=== PATIENT | female | born 1975 | race Caucasian/White ===

== ENCOUNTER 2024-04-04 18:15 | Emergency (ER) | payer BC, SELFPAY ==
[2024-04-04 18:36] VITALS: BP 181/125
--- NOTE | 2024-04-04 18:36 | ED.GENMED ---
ED Provider Triage
<Ross Serra Jr., PA-C - Last Filed: 04/04/24 18:40>
-
Patient seen by provider in Triage?: Seen in Triage
Attestation: A medical screening examination has been initiated by a qualified medical provider. Based on the assessment performed at this time, it has been determined that an emergent medical condition may exist and the patient has been informed
that further medical evaluation and possible additional diagnostic testing may be needed.
HPI: 48 F coming in for persisting nausea vomiting and headache. Had elevated blood pressure went to [facility] 2 days ago and that of having a CT and MRI of her head without acute abnormalities was told to follow-up closely with
neurology was started on amlodipine. Blood pressure was improving at time of discharge but has since increased back to 165/110. Difficulty tolerating anything by mouth and still diffuse headache. Considering ongoing symptoms plan for labs as well
as medication for potential migraine syndrome.
GENERAL: Alert , in no apparent distress
EYE: No visual abnormalities.
NECK: Trachea midline
ENT: No visible abnormalities.
LUNGS: No acute respiratory distress
NEUROLOGICAL: Alert and oriented
SKIN: Skin intact. No visible changes.
MUSCULOSKELETAL: Moving extremities normally
PSYCH: Normal and appropriate interaction.
This is a medical evaluation conducted in person to initiate diagnostic evaluation and provide initial therapeutics. Please see further documentation by the treating clinician.
History of Present Illness
<Ross Serra Jr., PA-C - Last Filed: 04/04/24 18:40>
General
Chief Complaint: Blood Pressure Problem
Time Seen by Provider: 04/04/24 20:55
<INDIA Ferrari - Last Filed: 04/04/24 23:30>
General
Source: patient and spouse
Exam Limitations: none
History of Present Illness
History of Present Illness:
This is a 48 year old female that comes in with c/o hypertension and headache. States that on Wednesday she had a headache so she took her BP and it was 175/100 and something. State that on Wednesday it remained high so she went to [facility]. State that
she was kept there till last night. State that they did an MRI and CT of here head and they were normal. States that she was told to see a Neurologist. States that they place on Amlodipine 10mg which she takes in the morning. States that she has had
some chills and vomited. States that her headache is across her forehead and back to the back of her head. Denies any fever, chest pain, SOB, abd pain, nausea, diarrhea, dizziness, urinary burning.
Past History
<INDIA Ferrari - Last Filed: 04/04/24 23:30>
Past History
ED Past Medical History: HTN, Hypothyroidism and Other (Colitis, )
ED Past Surgical History: Other (Breast surgery)
Social History
Tobacco: Non-smoker
Alcohol: None
Personal:
Living: with family
Review of Systems
<INDIA Ferrari - Last Filed: 04/04/24 23:30>
Review of Systems
All Other Systems: ROS reviewed and negative except as documented in HPI and ROS
Constitutional: Reports chills; Denies fever
EENT: Reports no symptoms
Respiratory: Reports no symptoms; Denies cough or trouble breathing
Cardiac: Reports no symptoms; Denies chest pain
ABD/GI: Reports nausea and vomiting; Denies abdominal pain or diarrhea
: Reports no symptoms; Denies dysuria, frequency or urgency
Musculoskeletal: Reports no symptoms
Skin: Reports no symptoms
Neurological: Reports headache; Denies dizzy
Psychiatric: Reports no symptoms
Phy Exam
<INDIA Ferrari - Last Filed: 04/04/24 23:30>
General Physical Exam
General Presentation: no apparent distress
General age: appears stated age
General Skin: warm and dry
General Habitus: normal
General Mental: alert
General Hydration: appears well hydrated
ENT Exam
ENT Exam: TM's normal, pharynx normal and neck supple
Eye Exam
Eye Exam: EOMI
Cardiovascular Exam
Cardiovascular Exam: regular rate/rhythm, no edema, no murmur and normal peripheral pulses
Pulmonary Exam
Pulmonary Exam: lungs clear, no respiratory distress, no rales, chest non tender, no crackles, no rhonchi, no wheezing and no cough
Gastrointestinal Exam
Gastrointestinal Exam: normal bowel sounds, non tender, soft, no organomegaly, no pulsatile mass and non distended
Musculoskeletal Exam
Musculoskeletal Exam: full ROM and no edema
Skin Exam
Skin Exam: normal color, warm/dry, no rash and no petechia
Psychiatric Exam
Psychiatric Exam: normal mood/affect
Course
<Ross Serra Jr., PA-C - Last Filed: 04/04/24 18:40>
Orders/Labs/Results
Orders:
Orders
04/04/24 18:38
Electrocardiogram (*1) Stat
Reason for Study: Abdominal Pain
EKG- Treatment ONCE
Urinalysis Reflex To Culture Urgent
0.9% Sodium Chloride 1000 ml [Nss] 1,000 ml IV BOLUS
Diphenhydramine [Benadryl] 25 mg IV NOW STA
Metoclopramide [Reglan] 10 mg IV NOW STA
04/04/24 19:10
Complete Blood Count/With Diff Urgent
Comprehensive Metabolic Panel Urgent
Lipase Urgent
04/04/24 21:21
Acetaminophen [Tylenol] 1,000 mg PO NOW STA
Dexamethasone Sod Phosphate [Decadron] 20 mg IV NOW STA
Ketorolac [Toradol] 30 mg IV NOW STA
Abnormal Lab Results
04/04/24
19:10
Absolute Lymphs (auto) 0.6 L 10^3/uL
(1.2-3.4)
Neutrophils % 79.8 H %
(42.2-75.2)
Lymphocytes % 12.9 L %
(20.5-51.1)
Creatinine 0.5 L mg/dL
(0.6-1.0)
Glucose 126 H mg/dl
(70-99)
Total Protein 8.4 H g/dl
(6.3-8.2)
Albumin 5.1 H g/dl
(3.5-5.0)
04/04/24 19:10
04/04/24 19:10
Vital Signs
Initial and Last Documented VS:
Initial Vital Signs
Temp Pulse Resp BP Pulse Ox
98.2 F 105 20 181/125 99
04/04/24 18:36 04/04/24 18:36 04/04/24 18:36 04/04/24 18:36 04/04/24 18:36
Last Documented Vital Signs
Temp Pulse Resp BP Pulse Ox
98.2 F 94 16 150/93 98
04/04/24 18:36 04/04/24 21:41 04/04/24 21:41 04/04/24 23:00 04/04/24 23:00
<INDIA Ferrari - Last Filed: 04/04/24 23:30>
Orders/Labs/Results
Orders:
Orders
04/04/24 18:38
Electrocardiogram (*1) Stat
Reason for Study: Abdominal Pain
EKG- Treatment ONCE
Urinalysis Reflex To Culture Urgent
0.9% Sodium Chloride 1000 ml [Nss] 1,000 ml IV BOLUS
Diphenhydramine [Benadryl] 25 mg IV NOW STA
Metoclopramide [Reglan] 10 mg IV NOW STA
04/04/24 19:10
Complete Blood Count/With Diff Urgent
Comprehensive Metabolic Panel Urgent
Lipase Urgent
04/04/24 21:21
Acetaminophen [Tylenol] 1,000 mg PO NOW STA
Dexamethasone Sod Phosphate [Decadron] 20 mg IV NOW STA
Ketorolac [Toradol] 30 mg IV NOW STA
Abnormal Lab Results
04/04/24
19:10
Absolute Lymphs (auto) 0.6 L 10^3/uL
(1.2-3.4)
Neutrophils % 79.8 H %
(42.2-75.2)
Lymphocytes % 12.9 L %
(20.5-51.1)
Creatinine 0.5 L mg/dL
(0.6-1.0)
Glucose 126 H mg/dl
(70-99)
Total Protein 8.4 H g/dl
(6.3-8.2)
Albumin 5.1 H g/dl
(3.5-5.0)
04/04/24 19:10
04/04/24 19:10
Hyperglycemia. Total protein slightly elevated.
Vital Signs
Initial and Last Documented VS:
Initial Vital Signs
Temp Pulse Resp BP Pulse Ox
98.2 F 105 20 181/125 99
04/04/24 18:36 04/04/24 18:36 04/04/24 18:36 04/04/24 18:36 04/04/24 18:36
Last Documented Vital Signs
Temp Pulse Resp BP Pulse Ox
98.2 F 94 16 150/93 98
04/04/24 18:36 04/04/24 21:41 04/04/24 21:41 04/04/24 23:00 04/04/24 23:00
<INDIA Ferrari - Last Filed: 04/04/24 23:30>
MDM/Problems Addressed
Differential Diagnosis Includes:
Hypertension, Headache
MDM/Problems Addressed:
This is a 48 year old female that comes in with c/o headache and hypertension. Patient was recently in [facility] and was discharged on Amlodipine 10mg daily. States that she still has a headache and her BP was elevated.
Will check labs, Medicate for her headache pain, and monitor her BP. BP at this time was 155/98
back into see patient. patient states that she is feeling much better. Will have patient continue with her Amlodipine and follow up with the family doctor. Patient to increase her water intake to 8-8oz glasses daily. Patient can take Tylenol 1000mg
every 6 hours and alternate with Ibuprofen 600mg every 6 hours with food for headache pain. Reviewed how to take her BP and suggested that she only take this once in the morning and once at night. Return with any concerns.
Chronic conditions affecting care: HTN
Acute Exacerbation and/or Progression of Chronic Illness: HTN
<INDIA Ferrari - Last Filed: 04/04/24 23:30>
*Pulse Oximetry
Patient hypoxic: no
*EKG
Interpreted by ED Provider?: Yes
*Landfill Grader Interpretation
Rate: Landfill Grader- N/A
*Critical Care Note
Total Time (30-74mins, 75-104mins- exclusive of procedures): Not Applicable
ED Attending Note
<Ross Serra Jr., PA-C - Last Filed: 04/04/24 18:40>
-
Portions of this chart may have been created with voice recognition software.� Occasional wrong word or��sound alike� substitutions may have occurred due to the inherent limitations of voice recognition software.
Discharge Plan
Departure
Patient Disposition: Home (Routine Discharge)
Date of Disposition: 04/04/24
Time of Disposition: 23:21
Patient with high blood pressure during this ER visit?: Yes
Condition: Good
Covid-19: Not Applicable
Discharge Problem:
Headache
Instructions: Headaches in adults, BLOOD PRESSURE
Prescriptions:
New
ondansetron 4 mg tablet,disintegrating
4 mg PO Q8H PRN (Reason: nausea and vomiting) Qty: 7 0RF
No Action
levothyroxine 75 MCG tablet
75 mcg PO DAILY AT 0700
mesalamine [Canasa] 1,000 MG suppository
1,[address] PRN PRN (Reason: For Flare ups)
PNV cmb#95-ferrous fumarate-FA [] 1 EACH tablet
1 ea PO CVOR
oxycodone-acetaminophen 5 MG/325 MG tablet
1 - 2 tab PO Q4HPRN PRN (Reason: severe pain) Qty: 10 0RF
ibuprofen 600 MG tablet
600 mg PO Q4HPRN PRN (Reason: cramps) 0RF
Referrals:
Max Damon MD [Active] - Follow up in 2-3 days
NONE,* [Family Provider] -
Activity Restrictions/Additional Instructions:
As discussed, you BP has come done while you were here. You have been given medication to help with your headache. Please increase your water intake to 8-8oz glasses daily. Follow up with the family doctor for recheck. You may use Tylenol 1000mg
every 6 hours for pain and alternate with Ibuprofen 600mg every 6 hours with food for pain. A prescription for Zofran to help with any nausea/vomiting has been sent to your Pharmacy. IF YOU HAVE INCREASED OR CHANGING PAIN, OR YOU HAVE ANY OTHER
CONCERNS PLEASE RETURN TO THE EMERGENCY ROOM.
Interventions
Interventions:
*Risk Screen - Suicide Last Done: 04/04/24 18:36
*General Assessment Last Done: 04/04/24 18:36
*Neglect/Abuse Screening Last Done: 04/04/24 18:36
*ED COVID-19 Vaccine History Last Done: 04/04/24 19:19
ED- Cardiac Assessment Last Done: 04/04/24 20:12
ED- Neurological Assessment Last Done: 04/04/24 20:12
ED- Pulmonary Assessment Last Done: 04/04/24 20:12
Discharge Date and Time
Print Language: YAKUT
[2024-04-04 19:06] VITALS: BP 160/100
[2024-04-04] MEDS: NSS 1000 IV (19:11)
[2024-04-04] MEDS: BENADRYL 25 MG IV (19:12)
[2024-04-04] MEDS: REGLAN 10 MG IV (19:12)
[2024-04-04 19:24] LABS: % Basophils 0.4 % (0-2); % Immature Granulocytes 0.4 % (0-0.5); % Lymphocytes 12.9 % (20.5-51.1); % Monocytes 5.5 % (1.7-9.3); % Neutrophils 79.8 % (42.2-75.2); Absolute Eosinophils 0.1 10^3/uL (0-0.7); Absolute Lymphocytes 0.6 10^3/uL (1.2-3.4); Absolute Monocytes 0.3 10^3/uL (0.1-0.6); Absolute Neutrophils 3.9 10^3/uL (1.4-6.5); Hemoglobin 14.4 g/dL (12.0-16.0); Mean Corp Hgb Conc. 33.5 g/dL (33.0-37.0); Mean Corpuscular Hgb 28.6 pg (27.0-31.0); Mean Corpuscular Volume 85.3 fL (81.0-99.0); Mean Platelet Volume 9.8 fL (7.4-10.4); Nucleated Red Blood Cells % 0 %; Platelet Count 217 10^3/uL (130-400); Red Blood Cell Count 5.04 10^6/uL (4.20-5.40); Red Cell Dist. Width 13.2 % (11.5-14.5); White Blood Cell Count 4.9 10^3/uL (4.8-10.8)
[2024-04-04 19:46] LABS: ALT (SGPT) 33 U/L (0-35); AST (SGOT) 33 U/L (14-36); Albumin 5.1 g/dl (3.5-5.0); Alkaline Phosphatase 54 U/L (38-126); Blood Urea Nitrogen 14 mg/dl (7-17); Calcium 9.6 mg/dl (8.4-10.2); Carbon Dioxide 27 mmol/L (22-30); Chloride 100 mmol/L (98-107); Glucose 126 mg/dl (70-99); Lipase 50 U/L (23-300); Potassium 3.9 mmol/L (3.5-5.1); Sodium 136 mmol/L (135-145); Total Bilirubin 0.7 mg/dl (0.2-1.3); Total Protein 8.4 g/dl (6.3-8.2); eGFR > 60.00
[2024-04-04 20:15] VITALS: BP 163/93
[2024-04-04 21:00] VITALS: BP 155/98
[2024-04-04] MEDS: TYLENOL 1000 MG PO (21:35)
[2024-04-04] MEDS: TORADOL 30 MG IV (21:35)
[2024-04-04] MEDS: DECADRON 20 MG IV (21:35)
[2024-04-04 22:00] VITALS: BP 148/97
[2024-04-04 23:00] VITALS: BP 150/93
== END 2024-04-04 23:30 | disposition home or self-care (01) ==
LOC: EMR 18:15
PROVIDERS: Physician Assistant; EMERGENCY PHYSICIAN Emergency Medicine
DX: R51.9 Headache, unspecified (principal); R11.2 Nausea with vomiting, unspecified; R68.83 Chills (without fever); I10 Essential (primary) hypertension; E03.9 Hypothyroidism, unspecified; K52.9 Noninfective gastroenteritis and colitis, unspecified
CPT/HCPCS: 99284; 96374; 96375 ×3; 80053; 83690; 85025; 93005

== ENCOUNTER → 2024-05-16 08:24 | Outpatient (REF) | payer BC, SELFPAY | LOC: HWRAD 08:24 | DX: I10 Essential (primary) hypertension (principal) | CPT/HCPCS: 93306; 93975 ==

== ENCOUNTER → 2024-05-23 08:55 | Outpatient (REF) | payer BC, SELFPAY | LOC: HWRAD 08:55 | PROVIDERS: ATTENDING PHYSICIAN Student in an Organized Health Care Education/Training Program | DX: R94.6 Abnormal results of thyroid function studies (principal) | CPT/HCPCS: 76536 ==

== ENCOUNTER → 2024-07-04 08:50 | Outpatient (REF) | payer BC, SELFPAY | LOC: HWWDC 08:50 | PROVIDERS: ATTENDING PHYSICIAN Student in an Organized Health Care Education/Training Program | DX: Z12.31 Encounter for screening mammogram for malignant neoplasm of breast (principal) | CPT/HCPCS: 77063; 77067 ==

== ENCOUNTER → 2025-04-03 10:44 | Outpatient (REF) | payer BC, SELFPAY | LOC: MRI 3T 10:44 | PROVIDERS: ATTENDING PHYSICIAN Student in an Organized Health Care Education/Training Program | DX: G93.0 Cerebral cysts (principal) | CPT/HCPCS: 70553; A9575 ==